=== PATIENT | female | born 1955 ===

== ENCOUNTER 2021-10-14 08:53 | Outpatient (CLI) | payer OTHER | END 2021-10-14 09:04 | disposition home or self-care (01) | LOC: TOM 08:53 | PROVIDERS: ATTEND Internal Medicine | DX: R19.5 Other fecal abnormalities (principal); Z12.11 Encounter for screening for malignant neoplasm of colon; K56.50 Intestinal adhesions [bands], unspecified as to partial versus complete obstruction ==